=== PATIENT | female | born 1965 | race Two or more races ===

== ENCOUNTER 2024-08-08 02:36 | Emergency (ER) | payer MEDICAID ==
[~2024-08-08] VITALS: Ht 160 cm; Wt 73.8 kg
[2024-08-08] MEDS: KETOROLAC TROMETH 30 MG/ML 1ML VIAL IM ONE (03:50)
[2024-08-08] MEDS ORDERED: IBUP1TAB5 PO (03:51)
[2024-08-08 03:58] VITALS: BP 125/83; PULSE 97; RESP 16; TEMP 97.8; O2SAT 100
== END 2024-08-08 04:00 | disposition home or self-care (01) ==
LOC: ER 02:36
DX: G56.03 Carpal tunnel syndrome, bilateral upper limbs (principal); E11.9 Type 2 diabetes mellitus without complications; E78.5 Hyperlipidemia, unspecified
CPT/HCPCS: 96372; 99283; J1885